=== PATIENT | female | born 1980 | race Caucasian/White ===

== ENCOUNTER 2017-09-26 09:07 | Emergency (ER) | payer OTHER ==
[2017-09-26 09:17] VITALS: TEMP 98.7; BMI 24.7
--- NOTE | 2017-09-26 09:51 | PDOC ---
History of Present Illness - General History Source: Patient - History of Present Illness Timing/Duration: reports: other (2 weeks) Severity: reports: moderate Associated Symptoms: reports: sore throat. denies: cough, earache, fever/chills , nasal congestion, nasal drainage <Sofia Barrera Last Filed: 09/26/17 10:53> <MarcusKerwinBhargav - Last Filed: 09/28/17 11:33> - General Chief Complaint: Sore Throat Stated Complaint: THROAT PAIN Time Seen by Provider: 09/26/17 09:40 Past History - Past Medical History Asthma: No Cancer: No Cardiac Disorders: No COPD: No Diabetes: No HTN: No Seizures: No Thyroid Disease: No - Suicide/Smoking/Psychosocial Hx Smoking History: Never smoked Have you smoked in the past 12 months: No Hx Alcohol Use: No Drug/Substance Use Hx: No Hx Substance Use Treatment: No <Sofia Barrera Last Filed: 09/26/17 10:53> <Bhargav Velazquez - Last Filed: 09/28/17 11:33> - Past Medical History Allergies/Adverse Reactions: Allergies Allergy/AdvReac Type Severity Reaction Status Date / Time No Known Allergies Allergy Verified 09/26/17 09:16 Home Medications: Ambulatory Orders NK [No Known Home Medication] 09/26/17 Review of Systems - Review of Systems Constitutional: No: Chills, Fever HEENTM: Yes: Throat Pain. No: Ear Pain Respiratory: No: Cough ABD/GI: No: Nausea, Vomiting <Sofia Barrera Filed: 09/26/17 10:53> *Physical Exam - Vital Signs Last Vital Signs Temp Pulse Resp BP Pulse Ox 98.7 F 75 20 125/81 99 09/26/17 09:14 09/26/17 09:14 09/26/17 09:14 09/26/17 09:14 09/26/17 09:14 - Physical Exam General Appearance: Yes: Appropriately Dressed. No: Apparent Distress HEENT: positive: Normal ENT Inspection, Normal Voice, TMs Normal, Pharynx Normal. negative: Scleral Icterus (R), Scleral Icterus (L) Neck: positive: Supple. negative: Lymphadenopathy (R), Lymphadenopathy (L) Respiratory/Chest: positive: Lungs Clear, Normal Breath Sounds. negative: Respiratory Distress Gastrointestinal/Abdominal: positive: Soft. negative: Tender Integumentary: positive: Dry, Warm Neurologic: positive: Fully Oriented, Alert, Normal Mood/Affect <Kalpana Barrera - Last Filed: 09/26/17 10:53> - Vital Signs Last Vital Signs Temp Pulse Resp BP Pulse Ox 98.7 F 76 18 121/80 99 09/26/17 09:14 09/26/17 11:10 09/26/17 11:10 09/26/17 11:10 09/26/17 11:10 <Bhargav Velazquez - Last Filed: 09/28/17 11:33> ED Treatment Course - ADDITIONAL ORDERS Additional order review: 09/26/17 09:54 Throat Culture - Final Throat NO BETA HEMOLYTIC STREPTOCOCCI ISOLATED Group A Strep Rapid Antigen - Final - Medications Given in the ED: ED Medications Discontinued Medications Generic Name Dose Route Start Last Admin Trade Name Tomyq PRN Reason Stop Dose Admin Ibuprofen 800 mg 09/26/17 10:42 09/26/17 11:09 Motrin - PO 09/26/17 10:43 800 mg ONCE ONE Administration <Bhargav Velazquez - Last Filed: 09/28/17 11:33> Medical Decision Making - Medical Decision Making 09/26/17 09:51 37-year-old female, no significant history here with sore throat for 2 weeks. States she has pain on swallowing and at times feels like food gets stuck in her throat. No regurgitation, n/v. No ear pain, f/c. No h/o similar episode. No known h/o GERD/gastritis. No h/o tob use See exam Dysphagia Exam unremarkable Rapid strep negative -Will dc w/ ENT referral for further evaluation w/ trial of OTC GI cocktail in the meantime 09/26/17 10:56 <Kalpana Barrera - Last Filed: 09/26/17 10:53> - Medical Decision Making 09/28/17 11:32 The patient was seen and evaluated in conjunction with ROSA Barrera under my direct supervision, ancillary studies were reviewed. I agree with the plan as outlined by ROSA Barrera . <Bhargav Velazquez - Last Filed: 09/28/17 11:33> *DC/Admit/Observation/Transfer <Kalpana Barrera - Last Filed: 09/26/17 10:53> <MarcusBhargav - Last Filed: 09/28/17 11:33> Diagnosis at time of Disposition: Dysphagia Qualifiers: Dysphagia type: unspecified Qualified Code(s): R13.10 - Dysphagia, unspecified - Discharge Dispostion Disposition: HOME Condition at time of disposition: Good - Referrals Referrals: Santi Orr MD [Staff Physician] - - Patient Instructions Printed Discharge Instructions: Oropharyngeal Dysphagia Additional Instructions: La prueba para la infeccin de garganta fue negativa La causa de rosas dificultad para tragar no est [place], marixa es posible que tenga gastritis. Puede comprar pepcid y maalox en el mostrador y catherine segn las instrucciones para diamond si obtiene algn alivio Por favor, siga con el Dr. Orr de ENT Print Language: MACEDONIAN
[2017-09-26] MEDS ORDERED: IBUPROFEN 400 MG TABLET (FP) PO ONE ×2 (10:42→11:08)
[2017-09-26 11:12] VITALS: BP 121/80; PULSE 76
== END 2017-09-26 11:12 | disposition home or self-care (01) ==
LOC: JER 09:07 → JERFT 09:07 → JER 11:12
DX: R13.10 Dysphagia, unspecified (principal)
CPT/HCPCS: 87070; 87430; 99282-25

== ENCOUNTER 2020-05-29 19:39 | Emergency (ER) | payer OTHER ==
--- NOTE | 2020-05-29 19:48 | PDOC ---
Rapid Medical Evaluation Chief Complaint: Allergic Reaction Time Seen by Provider: 05/29/20 19:48 Medical Evaluation: Allergies Allergy/AdvReac Type Severity Reaction Status Date / Time No Known Allergies Allergy Verified 09/26/17 09:16 05/29/20 19:48 I have performed a brief in-person evaluation of this patient. The patient presents with a chief complaint of:Hives today, no resp sxs. No obvious inciting factors Pertinent physical exam findings:stable w/ generalized hives I have ordered the following:nothing The patient will proceed to the ED for further evaluation. Discharge Disposition - Diagnosis Rash and nonspecific skin eruption - Referrals - Patient Instructions - Post Discharge Activity
[2020-05-29 19:50] VITALS: BP 117/80; PULSE 73; TEMP 98; BMI 27.3
[2020-05-29] MEDS ORDERED: diphenhydrAMINE HCL 25 MG CAPSULE (FP) PO ONE ×2 (20:20→20:29)
[2020-05-29] MEDS ORDERED: DEXAMETHASONE LIQUID 0.5 MG/5 ML PO ONE (20:20)
[2020-05-29] MEDS ORDERED: FAMOTIDINE 20 MG TABLET PO ONE (20:20)
--- NOTE | 2020-05-29 20:21 | PDOC ---
History of Present Illness - General Chief Complaint: Allergic Reaction Stated Complaint: RASH/ ALLERGIC REACTION Time Seen by Provider: 05/29/20 19:48 History Source: Patient Exam Limitations: No Limitations Past History - Travel History Traveled outside of the country in the last 30 days: No Close contact w/someone who was outside of country & ill: No - Medical History Allergies/Adverse Reactions: Allergies Allergy/AdvReac Type Severity Reaction Status Date / Time No Known Allergies Allergy Verified 09/26/17 09:16 Home Medications: Ambulatory Orders Diphenhydramine HCl [Benadryl -] 25 mg PO Q8H #21 capsule 05/29/20 Famotidine [Pepcid -] 20 mg PO BID #14 tablet 05/29/20 Methylprednisolone [Medrol Dose Otis] 4 mg PO ASDIR #21 tablet 05/29/20 Asthma: No Cancer: No Cardiac Disorders: No COPD: No Diabetes: No HTN: No Seizures: No Thyroid Disease: No - Psycho-Social/Smoking History Smoking History: Never smoked Have you smoked in the past 12 months: No - Substance Abuse Hx (Audit-C & DAST Scrn) How often the patient has a drink containing alcohol: Never Score: In Men: 4 or > Positive; In Women: 3 or > Positive: 0 Screen Result (Pos requires Nsg. Audit-10AR): Negative Review of Systems - Review of Systems Able to Perform ROS?: Yes Comments:: 05/29/20 21:37 CONSTITUTIONAL: Absent: fever, chills, diaphoresis, generalized weakness, malaise, loss of appetite HEENT: Absent: rhinorrhea, nasal congestion, throat pain, throat swelling, difficulty swallowing, mouth swelling, ear pain, eye pain, visual Changes CARDIOVASCULAR: Absent: chest pain, loss of consciousness, palpitations, irregular heart rate, peripheral edema RESPIRATORY: Absent: cough, shortness of breath, dyspnea with exertion, orthopnea, wheezing, stridor, hemoptysis GASTROINTESTINAL: Absent: abdominal pain, abdominal distension, nausea, vomiting, diarrhea, constipation, melena, hematochezia GENITOURINARY: Absent: dysuria, frequency, urgency, hesitancy, hematuria, flank pain, genital pain MUSCULOSKELETAL: Absent: myalgia, arthralgia, joint swelling SKIN: Present: Rash. Absent: rash, itching, pallor HEMATOLOGIC/IMMUNOLOGIC: Absent: easy bleeding, easy bruising, lymphadenopathy, frequent infections ENDOCRINE: Absent: unexplained weight gain, unexplained weight loss, heat intolerance, cold intolerance NEUROLOGIC: Absent: headache, focal weakness or paresthesias, dizziness, unsteady gait, seizure, mental status changes, bladder or bowel incontinence PSYCHIATRIC: Absent: anxiety, depression, suicidal or homicidal ideation, hallucinations. Is the patient limited Nicaraguan proficient: No *Physical Exam - Vital Signs Last Vital Signs Temp Pulse Resp BP Pulse Ox 98 F 73 20 117/80 100 05/29/20 19:47 05/29/20 19:47 05/29/20 19:47 05/29/20 19:47 05/29/20 19:47 - Physical Exam 05/29/20 21:37 GENERAL: Well developed, well nourished. Awake and alert. No acute distress. HEENT: Normocephalic, atraumatic. PERRLA, EOMI. No conjunctival pallor. Sclera are non- icteric. Moist mucous membranes. Oropharynx is clear. No stridor NECK: Supple. Full ROM. No JVD. Carotid pulses 2+ and symmetric, without bruits. No thyromegaly. No lymphadenopathy. CARDIOVASCULAR: Regular rate and rhythm. No murmurs, rubs, or gallops. Distal pulses are 2+ and symmetric. PULMONARY: No evidence of respiratory distress. Lungs clear to auscultation bilaterally. No wheezing, rales or rhonchi. EXTREMITIES: No cyanosis. No clubbing. No edema. No calf tenderness. SKIN: Wheals present to the body sparing the palms and scalp with surrounding erythema. Warm and dry. Normal capillary refill.No jaundice. NEUROLOGICAL: Alert, awake, appropriate. Cranial nerves 2-12 intact. No deficits to light touch and temperature in face, upper extremities and lower extremities. No motor deficits in the in face, upper extremities and lower extremities. Normoreflexic in the upper and lower extremities. Normal speech. Toes are down-going bilaterally. Gait is normal without ataxia. PSYCHIATRIC: Cooperative. Good eye contact. Appropriate mood and affect. Medical Decision Making - Medical Decision Making 05/29/20 21:38 Patient is a 39-year-old female with no past medical history who presents to the ER with a rash starting this evening. She states that she randomly broke out in a very itchy allergic type rash. She notes that it goes all over her body. She is not taking any medication at home for the rash. She states that this is so ppened to her before but does not know of any offending agents. Denies new foods, new lotions, detergents. Denies difficulty breathing, shortness of breath and wheezing. A/P: Allergic reaction On exam patient has wheals over the entire body sparing the scalp and palms. Consistent with an allergic reaction. Airway is clear and maintained. No stridor noted. No wheezing. Decadron, Pepcid and Benadryl given in the ER with relief of symptoms. We will send patient home on Medrol Dosepak and allergy follow-up given. Discharge home I discussed the physical exam findings, ancillary test results and final diagnoses with the patient. I answered all of the patient's questions. The patient was satisfied with the care received and felt comfortable with the discharge plan and treatment plan. The Patient agrees to follow up with the primary care physician/specialist within 24-72 hours. Return precautions were given. Discharge - Discharge Information Problems reviewed: Yes Clinical Impression/Diagnosis: Hives, Rash and nonspecific skin eruption Condition: Stable Disposition: HOME - Admission No - Additional Discharge Information Prescriptions: Diphenhydramine HCl [Benadryl -] 25 mg PO Q8H #21 capsule Methylprednisolone [Medrol Dose Otis] 4 mg PO ASDIR #21 tablet Famotidine [Pepcid -] 20 mg PO BID #14 tablet - Follow up/Referral Referrals: Santi Orr MD [Staff Physician] - - Patient Discharge Instructions Patient Printed Discharge Instructions: DI for Hives Additional Instructions: You were seen here for your rash today. It is most likely an allergic reaction. Please take the prednisone, Pepcid and Benadryl starting tomorrow. You already received this medication in the ER tonight. Wash your skin and cool water to help with the itching. Keep a diary when you break out in a rash to see if you can find a common issue. Please follow-up with Dr. West office. A referral has been provided to you. He is an thread trimmer. Return to the ER for difficulty breathing, shortness of breath, wheezing, worsening rash, fever or if you have any changes in your symptoms. Te vieron aqu por tu sarpullido hoy. Lo ms probable es que sea roxy reaccin alrgica. Por favor, tome la prednisona, Pepcid y Benadryl a partir de maana. Ya has recibido surendra medicamento en Urgencias esta noche. Lvese la piel y enfre el agua para ayudar con la picazn. Guarda un diario cuando te descompongas en roxy erupcin cutnea para diamond si puedes encontrar un problema comn. Por favor, siga con la oficina del DrAugustine Se le so proporcionado roxy referencia. Es un alerglogo. Regrese a urgencias para dificultad para respirar, dificultad para respirar, sibilancias, empeoramiento de la erupcin cutnea, fiebre o si tiene algn cambio en los sntomas. Print Language: SINHALA - Post Discharge Activity
[2020-05-29] MEDS ORDERED: DEXAMETHASONE SOD PHOSPHATE 10 MG/1 ML VIAL ONE (20:29)
[2020-05-29] MEDS ORDERED: FAMOTIDINE 20 MG TABLET ONE (20:30)
== END 2020-05-29 20:49 | disposition home or self-care (01) ==
LOC: JERFT 19:39
DX: R21 Rash and other nonspecific skin eruption (principal)
CPT/HCPCS: 99284-25

== ENCOUNTER 2021-05-26 00:35 | Inpatient (IN) | payer OTHER ==
[2021-05-26 01:34] LABS: BASO % 0.5 % (0-2.0); EOS % 2.1 % (0-4.5); HEMOGLOBIN 12.2 GM/dL (10.7-15.3); LYMPH % 22.6 % (8-40); MCH 30.8 pg (25.7-33.7); MCHC 33.9 g/dl (32.0-36.0); MEAN CELL VOLUME 90.8 fl (80-96); NEUT % 67.8 % (42.8-82.8); PLATELET COUNT 195 10^3/uL (134-434); RBC 3.97 M/mm3 (3.60-5.2); RDW 15.7 % (11.6-15.6); WHITE BLOOD COUNT 7.8 K/mm3 (4.0-10.0)
[2021-05-26 01:39] LABS: INR 0.97 (0.83-1.09); PROTHROMBIN TIME (PATIENT) 11.7 SEC (9.7-13.0)
[2021-05-26 01:42] LABS: ACTIVATED PTT 27.4 SECONDS (25.2-36.5)
[2021-05-26 01:49] VITALS: BMI 26.2
[2021-05-26 01:53] LABS: CALCIUM 8.1 mg/dL (8.5-10.1)
[2021-05-26 01:54] LABS: BLOOD UREA NITROGEN 10.3 mg/dL (7-18)
[2021-05-26 01:57] LABS: CREATININE 0.5 mg/dL (0.55-1.3)
[2021-05-26] MEDS ORDERED: ELECTROLYTE-148 SOLN 1,000 ML IV SCH (02:00)
[2021-05-26] MEDS ORDERED: OXYTOCIN 30 UNITS in 0.9% NS 30 UNIT/500 ML INFUS.BAG IVPB ONE (08:48)
[2021-05-26] MEDS ORDERED: OXYTOCIN 30 UNITS in 0.9% NS 30 UNIT/500 ML INFUS.BAG IVPB SCH (09:00)
[2021-05-26] MEDS ORDERED: PROMETHAZINE HCL 25 MG/1 ML VIAL ONE (12:06)
[2021-05-26] MEDS ORDERED: BUTORPHANOL TARTRATE 2 MG/ML VIAL ONE (12:06)
[2021-05-26] MEDS ORDERED: BUTORPHANOL TARTRATE 2 MG/ML VIAL IVPB ONE (12:15)
[2021-05-26] MEDS ORDERED: PROMETHAZINE HCL 25 MG/1 ML VIAL IVPB ONE (12:15)
[2021-05-26] MEDS ORDERED: PROMETHAZINE HCL 25 MG/1 ML VIAL IVPUSH ONE (12:15)
[2021-05-26] MEDS ORDERED: OXYTOCIN 20 UNITS in 0.9% NS 20 UNIT/1,000 ML INFUS.BAG IV ONE ×2 (13:34→16:10)
[2021-05-26] MEDS ORDERED: LIDOCAINE HCL 1% PRESERVATIVE FREE - 30ML VIAL ONE (13:59)
[2021-05-26] MEDS ORDERED: METHYLERGONOVINE MALEATE 0.2 MG/1 ML AMP IM PRN (14:44)
[2021-05-26] MEDS ORDERED: IBUPROFEN 600 MG TABLET (FP) PO PRN (14:44)
[2021-05-26] MEDS ORDERED: BENZOCAINE 20% 57 GM BOTTLE TP PRN (14:44)
[2021-05-26] MEDS ORDERED: WITCH HAZEL 50% (TUCKS) 40 PAD/JAR PAD TP PRN (14:44)
[2021-05-26] MEDS ORDERED: ACETAMINOPHEN 325 MG TABLET (FP) PO PRN (14:44)
[2021-05-26] MEDS ORDERED: BENZOCAINE 28 GM HEMORRHOIDAL OINTMENT TP PRN (14:44)
[2021-05-26] MEDS ORDERED: BISACODYL 10 MG SUPP.RECT RC PRN (14:44)
[2021-05-26] MEDS ORDERED: OXYTOCIN 20 UNITS in 0.9% NS 20 UNIT/1,000 ML INFUS.BAG IV SCH (14:45)
[2021-05-26] MEDS: FERROUS SO4 325 MG TABLET (FP) PO SCH (17:40)
[2021-05-27 08:46] LABS: POC NITRAZINE POS
[2021-05-27] MEDS: FERROUS SO4 325 MG TABLET (FP) PO SCH ×2 (08:58→17:46)
[2021-05-27] MEDS: PRENATAL VITAMINS W/ FOLIC ACID TABLET (FP) PO SCH (09:00)
[2021-05-27 10:37] LABS: BASO % 0.3 % (0-2.0); EOS % 1.2 % (0-4.5); HEMATOCRIT 29.9 % (32.4-45.2); HEMOGLOBIN 9.8 GM/dL (10.7-15.3); LYMPH % 13.2 % (8-40); MCH 30.7 pg (25.7-33.7); MCHC 32.9 g/dl (32.0-36.0); MEAN CELL VOLUME 93.6 fl (80-96); MEAN PLT VOLUME 9.5 fl (7.5-11.1); MONO % 5.1 % (3.8-10.2); NEUT % 80.2 % (42.8-82.8); PLATELET COUNT 168 10^3/uL (134-434); RDW 15.7 % (11.6-15.6)
[2021-05-27] MEDS ORDERED: SENNOSIDES/DOCUSATE COMBO (SENNA PLUS) TABLET (UD) PO PRN (22:00)
[2021-05-28] MEDS: FERROUS SO4 325 MG TABLET (FP) PO SCH (08:42)
[2021-05-28] MEDS: PRENATAL VITAMINS W/ FOLIC ACID TABLET (FP) PO SCH (09:37)
[2021-05-28 09:44] VITALS: BP 119/73; PULSE 78; TEMP 97.9
== END 2021-05-28 11:10 | disposition home or self-care (01) | DRG 560 ==
LOC: JDEL 00:35 → JLDR 00:50 → J3W 16:31
PROVIDERS: ADMIT Obstetrics & Gynecology; ATTEND Obstetrics & Gynecology
PROC: 10E0XZZ Delivery of Products of Conception, External Approach (ICD-10-PCS; principal; 2021-05-26)
PROC: 0W8NXZZ Division of Female Perineum, External Approach (ICD-10-PCS; 2021-05-26)
PROC: 0HQ9XZZ Repair Perineum Skin, External Approach (ICD-10-PCS; 2021-05-26)
DX: O42.02 Full-term premature rupture of membranes, onset of labor within 24 hours of rupture (principal); O48.0 Post-term pregnancy; O70.0 First degree perineal laceration during delivery; Z3A.40 40 weeks gestation of pregnancy; Z37.0 Single live birth
CPT/HCPCS: 36415; 59025; 59409; 80048; 83986-QW; 85025; 85610; 85730; 86780; 86850; 86900; 86901; C9803; U0003; U0005